=== PATIENT | male | born 1950 | race Caucasian/White ===

== ENCOUNTER 2019-01-19 11:29 | Outpatient (CLI) | payer MEDICARE, SELFPAY ==
[2019-01-19 14:47] LABS: Anion Gap 9.6 mmol/L (3-11); BUN 17 mg/dL (7-18); CO2 26.4 mmol/L (21.0-32.0); CREATININE 0.91 mg/dL (0.70-1.30); Calcium 9.2 mg/dL (8.5-10.1); Chloride 104 mmol/L (98-107); Cholesterol 164 mg/dL (50-200); Glucose 232 mg/dL (70-100); HDL Cholesterol 52 mg/dL (40-60); LDL CHOLESTEROL 98 mg/dL (<100); Potassium 4.7 mmol/L (3.5-5.1); Sodium 140 mmol/L (136-145); Triglyceride 78 mg/dL (30-150)
[2019-01-19 15:39] LABS: Hemoglobin A1C 9.3 % (4.5-6.2)
== END 2019-01-19 11:49 ==
PROVIDERS: PCP Family Medicine; Visit Provider Family Medicine
DX: I25.10 Atherosclerotic heart disease of native coronary artery without angina pectoris (principal); E11.39 Type 2 diabetes mellitus with other diabetic ophthalmic complication; I10 Essential (primary) hypertension; E11.65 Type 2 diabetes mellitus with hyperglycemia
CPT/HCPCS: 36415; 80048; 80061; 83721; 83036

== ENCOUNTER 2021-05-08 08:48 | Outpatient (CLI) | payer MEDICARE, SELFPAY ==
[2021-05-08 10:22] LABS: CREATININE 0.8 mg/dL (0.70-1.30); Calculated LDL 101 mg/dL (<100); Cholesterol 177 mg/dL (<200); HDL Cholesterol 58 mg/dL (40-60); Potassium 4.8 mmol/L (3.5-5.1); Triglyceride 91 mg/dL (<150)
[2021-05-09 11:27] LABS: BUN 17 mg/dL (7-18)
== END 2021-05-08 08:49 | disposition home or self-care (01) ==
LOC: LBO 08:53
PROVIDERS: PCP Nurse Practitioner; Visit Provider Nurse Practitioner
DX: I10 Essential (primary) hypertension (principal); I25.10 Atherosclerotic heart disease of native coronary artery without angina pectoris
CPT/HCPCS: 36415; 80061; 84520; 82565; 84132

== ENCOUNTER 2022-02-25 01:26 | Outpatient (CLI) | payer MEDICARE, SELFPAY ==
[2022-02-25 13:00] LABS: CREATININE 0.8 mg/dL (0.70-1.30); Calculated LDL 102 mg/dL (<100); Cholesterol 173 mg/dL (<200); HDL Cholesterol 57 mg/dL (40-60); Potassium 4.9 mmol/L (3.5-5.1); Triglyceride 73 mg/dL (<150)
[2022-02-25 13:55] LABS: Hemoglobin A1C 8.5 % (<5.7)
[2022-02-25 14:06] LABS: COMMENT (LAB VIEW ONLY) 136.95 mg/dL; Microalb ug/mg Crea 19.1 ug/mg Cr
== END 2022-02-25 01:27 | disposition home or self-care (01) ==
LOC: LOS 01:27
PROVIDERS: PCP Nurse Practitioner; Visit Provider Nurse Practitioner
DX: E11.9 Type 2 diabetes mellitus without complications (principal); I10 Essential (primary) hypertension
CPT/HCPCS: 36415; 80061; 82043; 82565; 82570; 83036; 84132

== ENCOUNTER 2024-06-03 13:58 | Outpatient (REF) | payer MEDICARE, SELFPAY ==
[2024-06-03 18:12] LABS: Anion Gap 9.6 mmol/L (3-11); BUN 16 mg/dL (7-18); CO2 27.4 mmol/L (21.0-32.0); CREATININE 0.8 mg/dL (0.70-1.30); Calcium 9.3 mg/dL (8.5-10.1); Calculated LDL 204 mg/dL (<100); Chloride 100 mmol/L (98-107); Cholesterol 275 mg/dL (<200); Estimated GFR 92.29 (mL/min/1.73m2); Glucose 325 mg/dL (74-106); HDL Cholesterol 54 mg/dL (40-60); Potassium 5.2 mmol/L (3.5-5.1); Sodium 137 mmol/L (136-145); Triglyceride 87 mg/dL (<150)
== END 2024-06-03 13:59 | disposition home or self-care (01) ==
LOC: LBN 13:58
PROVIDERS: PCP Nurse Practitioner Family; Visit Provider Nurse Practitioner Family
DX: I10 Essential (primary) hypertension (principal); I25.10 Atherosclerotic heart disease of native coronary artery without angina pectoris; E11.9 Type 2 diabetes mellitus without complications; E11.65 Type 2 diabetes mellitus with hyperglycemia
CPT/HCPCS: 80048; 80061